=== PATIENT | female | born 1965 | race American Indian/Alaskan Native ===

== ENCOUNTER 2019-03-03 13:36 | Emergency (ER) | payer BC ==
--- NOTE | 2019-03-03 14:28 | EDM.PDOC ---
ED HPI GENERAL MEDICAL PROBLEM - General Chief Complaint: Trauma Stated Complaint: R WRIST PAIN Time Seen by Provider: 03/03/19 13:36 Source of Information: Reports: Patient History Limitations: Reports: No Limitations - History of Present Illness INITIAL COMMENTS - FREE TEXT/NARRATIVE: 54 y.o.w.f came to the ed one day after she fall et home onto her right forearm. Pt does not remember the mech of injury. She c/o right wrist pain with deformity. No loss off function, no N/V/D no SOB or chest pain or any other acute med issues. BP 153/84 Pulse 90 RR 20 Pulse ox 97% on RA Temp 37.0 Onset Date: 03/02/19 Onset Time: 18:00 Duration: Day(s):, Getting Worse, Intermittent Location: Reports: Upper Extremity, Right Quality: Reports: Dull Improves with: Reports: Rest Worsens with: Reports: Movement Context: Reports: Trauma Associated Symptoms: Reports: No Other Symptoms Right Wrist Pain Score (Numeric/FACES): 5 - Related Data Allergies Allergy/AdvReac Type Severity Reaction Status Date / Time No Known Allergies Allergy Verified 03/03/19 14:25 Home Meds: Home Meds Acetaminophen/HYDROcodone [[place] 325-5 MG] 1 tab PO Q4H PRN #8 tab 03/03/19 [Rx] Review of Systems - Review of Systems Review Of Systems: See Below Constitutional: Reports: No Symptoms Eyes: Reports: No Symptoms Ears: Reports: No Symptoms Nose: Reports: No Symptoms Mouth/Throat: Reports: No Symptoms Respiratory: Reports: No Symptoms Cardiovascular: Reports: No Symptoms GI/Abdominal: Reports: No Symptoms Genitourinary: Reports: No Symptoms Musculoskeletal: Reports: Hand Pain Skin: Reports: Lesions (right knee abrasions) Neurological: Reports: No Symptoms Psychiatric: Reports: No Symptoms ED EXAM, GENERAL - Physical Exam Exam: See Below Exam Limited By: No Limitations General Appearance: Alert, WD/WN, Mild Distress, Moderate Distress Eye Exam: Bilateral Eye: Normal Inspection Ears: Normal External Exam Ear Exam: Bilateral Ear: Auricle Normal Nose: Normal Inspection, Normal Mucosa Throat/Mouth: Normal Inspection, Normal Lips, Normal Voice, No Airway Compromise Head: Atraumatic, Normocephalic Neck: Normal Inspection, Supple, Non-Tender, Full Range of Motion Respiratory/Chest: No Respiratory Distress, Lungs Clear, Normal Breath Sounds, Chest Non-Tender Cardiovascular: Normal Peripheral Pulses, Regular Rate, Rhythm, No JVD GI/Abdominal: Normal Bowel Sounds, Soft (Female) Exam: Deferred Rectal (Female) Exam: Deferred Back Exam: Normal Inspection, Full Range of Motion Extremities: Normal Inspection, Normal Range of Motion, Non-Tender Neurological: Alert, Oriented, CN II-XII Intact, Normal Cognition, Normal Gait Psychiatric: Normal Affect, Normal Mood Skin Exam: Warm, Dry, Wound/Incision (abrasion right knee) Lymphatic: No Adenopathy ED TRAUMA PROCEDURES - Splinting Right Upper Extremity Splint Site: right wrist Pre-Procedure NV Status: Normal Post-Procedure NV Status: Normal Splint Material: Fiberglass, Sling Splint Design: Volar Applied & Form Fitted By: Provider Provider Post-Splint Application NV Check: NV Status Normal Complications: No Course - Vital Signs Text/Narrative:: 54 y.o.w.f came to the ed one day after she fall et home onto her right forearm. Pt does not remember the mech of injury. She c/o right wrist pain with deformity. No loss off function, no N/V/D no SOB or chest pain or any other acute med issues. BP 153/84 Pulse 90 RR 20 Pulse ox 97% on RA Temp 37.0 PE: Thin 54 y.o.w.f with right wrist pain and deformity after a fall Imaging: Comminuted right distal radius fracture. Right ulna style fracture, official report is pending Procedure: Please see note above Impression: Comminuted right distal radius fracture. Right ulna style fracture. Tx: Long arm splint right forearm 2.39 pm Consultation: Dr. Campos, Ortho: Ortho Clinic will call her this week Reexam: Improved Plan: D/C with instructions Last Recorded V/S: Last Vital Signs Temp 37.0 C 03/03/19 13:38 Pulse 75 03/03/19 14:30 Resp 18 03/03/19 14:30 BP 133/62 03/03/19 14:30 Pulse Ox 97 03/03/19 14:30 - Orders/Labs/Meds Orders: Active Orders 24 hr Category Date Time Status Wrist Comp Min 3V Rt [CR] Stat Exams 03/03/19 13:52 Taken Meds: Medications Discontinued Medications Generic Name Dose Route Start Last Admin Trade Name Freq PRN Reason Stop Dose Admin Ibuprofen 600 mg 03/03/19 14:43 03/03/19 14:45 Motrin PO 03/03/19 14:44 600 mg ONETIME ONE Administration Departure - Departure Time of Disposition: 14:41 Disposition: Home, Self-Care 01 Clinical Impression: Wrist fracture, right Qualifiers: Encounter type: initial encounter Fracture type: closed Qualified Code(s): S62.101A - Fracture of unspecified carpal bone, right wrist, initial encounter for closed fracture - Discharge Information Prescriptions: Acetaminophen/HYDROcodone [[place] 325-5 MG] 1 tab PO Q4H PRN #8 tab PRN Reason: for severe pain only Instructions: Wrist Splint, Adult, [id number], Wrist Fracture Treated With Immobilization, [id number] Referrals: George Campos DO [Physician] - Forms: ED Department Discharge, ED Return to Work/School Form Additional Instructions: Rest, Ice and elevation, arm sling. Please f/u with Ortho, Dr. Campos A.S.A.P, please come back if your symptom get worse acutely. Please call Dr. Campos for an appointment this Monday. Motrin for mod pain, D[place] for severe pain. - My Orders Last 24 Hours: My Active Orders 03/03/19 13:52 Wrist Comp Min 3V Rt [CR] Stat - Assessment/Plan Last 24 Hours: My Active Orders 03/03/19 13:52 Wrist Comp Min 3V Rt [CR] Stat
[2019-03-03] MEDS ORDERED: Ibuprofen 600 MG Tab PO ONE (14:43)
== END 2019-03-03 15:17 | disposition home or self-care (01) ==
LOC: FB.ED 13:36
DX: S52.501A Unspecified fracture of the lower end of right radius, initial encounter for closed fracture (principal); S52.611A Displaced fracture of right ulna styloid process, initial encounter for closed fracture; S80.211A Abrasion, right knee, initial encounter; W19.XXXA Unspecified fall, initial encounter; Y92.009 Unspecified place in unspecified non-institutional (private) residence as the place of occurrence of the external cause
CPT/HCPCS: 29125; 73110; 99283; A9270

== ENCOUNTER 2019-03-07 07:53 | Day surgery (SDC) | payer BC ==
[2019-03-07] MEDS ORDERED: Ropivacaine 0.5% 5 MG/ML 20 ML SDV INJECT ONE (07:54)
[2019-03-07] MEDS ORDERED: Lidocaine 2% 100 MG/5 ML Syringe IVPUSH ONE (07:54)
[2019-03-07] MEDS ORDERED: Midazolam 1 MG/ML 2 ML SDV IV ONE (07:54)
[2019-03-07] MEDS ORDERED: Lactated Ringers 1,000 ML IV ONE (07:54)
[2019-03-07] MEDS ORDERED: Ondansetron 4 MG/2 ML SDV IVPUSH ONE (07:54)
[2019-03-07] MEDS ORDERED: Propofol 200 MG/20 ML SDV IV ONE (07:54)
[2019-03-07] MEDS ORDERED: fentaNYL 100 MCG/2 ML SDV IV ONE (07:54)
[2019-03-07] MEDS ORDERED: Ketorolac 30 MG/ML SDV IVPUSH ONE (07:54)
[2019-03-07] MEDS ORDERED: Dexamethasone 4 MG/ML 5 ML MDV IVPUSH ONE (07:54)
[2019-03-07] MEDS ORDERED: Lactated Ringers 1,000 ML IV SCH (08:00)
[2019-03-07] MEDS ORDERED: Sodium Chloride 0.9% 10 ML Syringe FLUSH PRN (08:00)
[2019-03-07] MEDS ORDERED: ceFAZolin 1 GM Vial IV ONE (10:00)
[2019-03-07] MEDS ORDERED: ceFAZolin 1 GM in Sodium Chloride 0.9% 50 ML IV ONE (10:00)
--- NOTE | 2019-03-07 11:45 | PCM.OPNOTE ---
- General Post-Op/Procedure Note Date of Surgery/Procedure: 03/07/19 Operative Procedure(s): orif r distal radius Pre Op Diagnosis: r distal radius fracture, closed, extra-articular Post-Op Diagnosis: Same Anesthesia Technique: General LMA, Regional Block Primary Surgeon: George Campos Anesthesia Provider: Paul Melvin EBL in mLs: 25 Complications: None Condition: Good
--- NOTE | 2019-03-07 12:39 | PCM.SN ---
- Free Text/Narrative Note: ANESTHESIA ACUTE PAIN SERVICE Date: 03/07/2019 Time: 1015 to 1032 Preoperative Dx: Comminuted Fx Right Distal Radius / Ulnar Postoperative Rx: ORIF Right Distal Radial Fx Surgeon requests a peripheral nerve block for Postoperative Pain Control. Procedure: Right Supraclavicular Brachial Plexus Nerve Block with Ultrasound [U/ S] Guidance. The risks and benefits of the nerve block were discussed with the patient and her daughter. All questions were answered completely and the patient wished to proceed. A consent was obtained. Monitors: NIBP, Heart Rate, SpO2 with nasal O2 on at 2 L/M. Sedation: Versed 2 mg's and Fentanyl 100 mcg IV mostly for the patient's moderate anxiety [some crying] with good success. The patient was easily aroused and orientated throughout the procedure. She was in the supine position with the H.O.B. elevated 45 degrees and her head turned to her left. I did a preprocedure scan with direct U/S visualization, I located the right Subclavian Artery, Brachial Plexus and the 1st rib v.s. pleural. The needle insertion site was prepped using a Chlora-Prep Swab X 1 and allowed to dry. Using aseptic technique and direct U/S visualization, I localized the insertion site with 3 ml's of 1% Lidocaine plain using a 25 Ga. needle. Using direct U/S visualization, I inserted a 22 Ga. 2In. Stimuplex Ultra 360 Insulated Echogenic Needle and advanced to the inferior corner of the Subclavian Artery. I watched as 10 ml's of .5% Naropin was injected slowly lifting the artery and surrounding the nerve bundle. Continued U/S use, I readvanced the needle to above the nerve bundles and watched as 10 ml's of .5% Naropin was given slowly. I removed the needle. There were no patient complaints or local toxicity noted. No procedure complications were noted. Within 2-3 minutes she stated she had either no pain or very little with her wrist. Documentation: Please see the U/S images taken in the PAC system found in Radiology. Thank you for allowing us to provide this service to your patient. Paul Melvin CRNA [facility]bi
--- NOTE | 2019-03-07 16:26 | OR ---
DATE OF OPERATION: 03/07/2019 SURGEON: George Campos DO PREOPERATIVE DIAGNOSIS: Right distal radius closed, extra-articular. POSTOPERATIVE DIAGNOSIS: Right distal radius closed, extra-articular. PROCEDURES: 1. Open reduction and internal fixation, right distal radius using [place] plate. 2. Application of short-arm splint. ANESTHESIA: Regional block plus general LMA. ANESTHESIOLOGIST: Paul Melvin CRNA. FLUID: Lactated Ringer solution. ESTIMATED BLOOD LOSS: 25 mL. COMPLICATIONS: None. SPECIMEN: None. DISCHARGE DISPOSITION: Stable to PACU. HISTORY AND INDICATION FOR THE PROCEDURE: The patient was seen preoperatively in the walk-in clinic and then the emergency department and then by myself yesterday. She had radiographic evidence of right distal radius fracture after a fall on outstretched hand. Risks and benefits of procedure were explained to the patient. Informed consent was obtained. DESCRIPTION OF PROCEDURE: The patient was seen preoperatively by myself and Anesthesia staff in the preop holding area where the operative site was marked. She was brought to the recovery room where a regional block was performed. She was then brought to the operative suite, where general LMA anesthesia was performed. A well-padded tourniquet was placed on the right arm, but never inflated during the procedure. The right upper extremity was then prepped and draped in a sterile manner. Time-out was called to identify the correct patient, the correct procedure, the correct site, and the antibiotics had been within appropriate time. An incision was made from the radiocarpal joint proximally along the flexor carpi radialis tendon, approximately 10 cm. Bleeding was controlled with Bovie electrocautery. I then went through the volar aspect of the tendon sheath and then retracted the tendon radially to protect the radial artery. I then went through the dorsal aspect of the FCR tendon. I was then able to identify the pronator. The pronator was released from its radial insertion along the distal radius and elevated ulnarly. The fracture line was identified. Using a [place] and reduction maneuver, I was able to reduce it. I then placed a small narrow plate on and I held the fracture in alignment with K-wire. I applied the plate and then used a distal K-wire and then a central screw through the oval hole. I adjusted this couple times under sterilely draped fluoroscopy until the proper position was met. We then drilled the central distal hole with a cortical nonlocking screw to bring the distal fragment next to the plate and verify this on films. I then drilled the remaining distal holes and then checked this on fluoro, which appeared to be in good position. I repositioned my distal central screw more distally and so was not as proud by 2 mm. I then drilled the proximal row and the remaining cortical holes in the plate and filled these with the screws. I then removed my K-wires and took my final film which showed good alignment with hinduism of volar tilt, radial inclination, and radial height. We then copiously irrigated with Betadine infused irrigation and then closed subcutaneous layer with interrupted 3-0 Vicryl sutures followed by 3-0 nylon horizontal mattress and interrupted sutures. We then applied Betadine-soaked [employer]ics sponge and then wrapped with sterile Webril and then applied a volar splint. We then allowed the patient to awaken from anesthesia and taken to the PACU in stable condition. /[id number] NARESH/JASON
--- NOTE | 2019-03-11 14:52 | CR ---
INDICATION: Guidance for ORIF, radial fracture. C-ARM FLUOROSCOPY IN OR, LESS THAN 1 HOUR: 0.2 minutes C-arm fluoroscopy time was utilized in OR during ORIF for radial fracture. 15 images were obtained with the final images showing good position and alignment of distal radial fracture fragments with a plate and multiple screws in place appearing intact. No definite complicating process was identified. SHANNOND
--- NOTE | 2019-03-11 14:53 | US ---
INDICATION: Right brachial plexus supraclavicular nerve block. ULTRASOUND RFA GUIDANCE: Utilizing ultrasonic guidance, the brachial plexus was delineated for supraclavicular nerve block. [facility]
== END 2019-03-07 13:20 | disposition home or self-care (01) ==
LOC: FB.SDS 07:53
PROVIDERS: ATTEND Orthopaedic Surgery
DX: S52.551A Other extraarticular fracture of lower end of right radius, initial encounter for closed fracture (principal); F17.210 Nicotine dependence, cigarettes, uncomplicated; W19.XXXA Unspecified fall, initial encounter
CPT/HCPCS: 25607; 76000; C1713; J0690; J1100; J1885; J2001; J2250; J2405; J2704; J2795; J3010; J7120